=== PATIENT | male | born 1960 | race Caucasian/White ===

== ENCOUNTER 2019-11-19 23:58 | Inpatient (IN) | payer MEDICAID ==
[~2019-11-19] VITALS: Ht 182.9 cm; Wt 77.3 kg
[2019-11-20] VITALS (9 sets, daily range): BP systolic 96–134; BP diastolic 60–79
--- NOTE | 2019-11-20 00:06 | NUR ---
THIS TECH DID EKG
[2019-11-20 00:26] LABS: BASOPHILS # (AUTO) 0.01 x10^3/uL (0-0.1); BASOPHILS % (AUTO) 0 % (0-1); EOSINOPHILS # (AUTO) 0.09 x10^3/uL (0-0.4); EOSINOPHILS % (AUTO) 1 % (1-7); LYMPHOCYTES # (AUTO) 1.77 x10^3/uL (1-3.4); LYMPHOCYTES % (AUTO) 24 % (22-44); MD NO; MEAN CORPUSCULAR HEMOGLOBIN 31.4 pg (27.5-34.5); MEAN CORPUSCULAR HGB CONC 33.6 g/dL (33.2-36.2); MEAN CORPUSCULAR VOLUME 93.4 fL (81-97); MEAN PLATELET VOLUME 8.5 fL (7.4-10.4); MONOCYTES # (AUTO) 0.55 x10^3/uL (0.2-0.8); MONOCYTES % (AUTO) 8 % (2-9); NEUTROPHILS # (AUTO) 4.86 x10^3/uL (1.8-6.8); NEUTROPHILS % (AUTO) 67 % (42-75); PLATELET COUNT 159 x10^3/uL (130-400); RED BLOOD COUNT 4.39 x10^6/uL (4.38-5.82); RED CELL DISTRIBUTION WIDTH 13.5 % (9.4-14.8)
[2019-11-20 00:36] LABS: ALBUMIN 3.8 g/dL (3.4-5.0); ANION GAP 7 mmol/L (5-15); CALCIUM 8.6 mg/dL (8.5-10.1); CHLORIDE 114 mmol/L (98-107); CREATININE 1.01 mg/dL (0.7-1.3)
[2019-11-20 00:42] LABS: TROPONIN I 0.131 ng/mL (0.000-0.045)
--- NOTE | 2019-11-20 00:53 | NUR ---
SISTER ROMANA [phone]
--- NOTE | 2019-11-20 01:33 | NUR ---
[facility] for an [facility] r/o. Patient states he was breaking up a dog fight earlier when he became SOB and felt "different." After the event, he states he passed out. Per EMS, patient had abnormal EKG at the previous facility. Patient denies CP or SOB at this time. No other symptoms reported. Respirations even and unlabored.
--- NOTE | 2019-11-20 01:43 | NUR ---
Report given to MONIK Mitchell. Patient to be transferred to room 511-1.
[2019-11-20] MEDS ORDERED: morphine SULFATE 10 MG/ML, 1ML IVPush PRN (02:30)
[2019-11-20] MEDS ORDERED: ACETAMINOPHEN 325 MG TABLET PO PRN (02:30)
[2019-11-20] MEDS ORDERED: GABAPENTIN 300 MG CAPSULE PO PRN (02:30)
[2019-11-20] MEDS ORDERED: TRAZODONE 50MG TABLET PO PRN (02:30)
[2019-11-20] MEDS ORDERED: hydrALAzine 20 MG/ML, 1ML IVPush PRN (02:30)
[2019-11-20] MEDS ORDERED: ONDANSETRON 2MG/ML, 2ML IVPush PRN (02:30)
[2019-11-20] MEDS: ASPIRIN 325 MG TABLET EC PO SCH (06:00)
[2019-11-20 06:07] LABS: CHOL/HDL RATIO 4.8; CHOLESTEROL, TOTAL 163 mg/dL (140-239); HDL CHOL % 21 % (26-37); HDL CHOLESTEROL (DIRECT) 34 mg/dL (40-60); LDL CHOLESTEROL,CALCULATED 118 mg/dL (54-169); LDL/HDL RATIO 3.5 (0.5-3.0); TRIGLYCERIDES 53 mg/dL (50-200); TROPONIN I 0.095 ng/mL (0.000-0.045); VLDL CHOLESTEROL 11 mg/dL (0-25)
[2019-11-20 06:39] LABS: AMPHETAMINE SCREEN, URINE Negative (Negative); BARBITURATE SCREEN, URINE Negative (Negative); BENZODIAZEPINE SCREEN, URINE Negative (Negative); CANNABINOID SCREEN, URINE Negative (Negative); COCAINE SCREEN, URINE Negative (Negative); METHADONE SCREEN, URINE Negative (Negative); OPIATE SCREEN, URINE Negative (Negative)
[2019-11-20] MEDS ORDERED: REGADENOSON 0.4 MG/5 ML SYRINGE ONE (08:09)
[2019-11-20 12:35] LABS: TROPONIN I 0.052 ng/mL (0.000-0.045)
[2019-11-21] VITALS (7 sets, daily range): BP systolic 101–127; BP diastolic 61–79
[2019-11-21 05:38] LABS: ANION GAP 9 mmol/L (5-15); CALCIUM 8.4 mg/dL (8.5-10.1); CHLORIDE 114 mmol/L (98-107)
[2019-11-21] MEDS: ASPIRIN 325 MG TABLET EC PO SCH (06:21)
[2019-11-22 00:21] VITALS: BP 108/65
[2019-11-22] MEDS: ASPIRIN 325 MG TABLET EC PO SCH (05:30)
[2019-11-22 07:34] VITALS: BP 109/74
[2019-11-22] MEDS: SODIUM CHLORIDE 0.9% 1,000 ML IV SCH ×2 (10:06→21:00)
[2019-11-22 13:26] VITALS: BP 118/72
[2019-11-22] MEDS ORDERED: FENTANYL PF 100 MCG/2ML ONE (14:12)
[2019-11-22] MEDS ORDERED: VERAPAMIL 2.5 MG/ML, 2ML ONE (14:12)
[2019-11-22] MEDS ORDERED: LIDOCAINE-MPF 1%, 5ML ONE (14:12)
[2019-11-22] MEDS ORDERED: MIDAZOLAM 1 MG/ML, 2ML ONE (14:12)
[2019-11-22] MEDS ORDERED: HEPARIN 1,000 UNITS/ML, 10ML ONE (14:13)
[2019-11-22 20:28] VITALS: BP 105/73
[2019-11-23 01:56] VITALS: BP 103/68
[2019-11-23] MEDS: ASPIRIN 325 MG TABLET EC PO SCH (05:37)
[2019-11-23 07:32] VITALS: BP 106/64
[2019-11-23] MEDS ORDERED: MAGNESIUM HYDROXIDE 8%, 30ML UDC PO SCH (09:00)
[2019-11-23] MEDS ORDERED: OMNIPAQUE 350 MG/ML, 100ML BOTTLE ONE (10:29)
[2019-11-23 13:14] VITALS: BP 106/68
[2019-11-23] MEDS ORDERED: ACET325T26 PO (13:40)
[2019-11-23] MEDS ORDERED: ASPI-650 PO (13:40)
[2019-11-23] MEDS ORDERED: GABA300C PO (13:40)
[2019-11-23] MEDS ORDERED: MAGN400O7 PO (13:40)
== END 2019-11-23 16:40 | disposition home or self-care (01) | DRG 190 ==
LOC: ED 11-20 00:57 → EDIP 11-20 01:14 → 5SO 11-20 01:50 → DCLOUNGE 11-23 16:28
PROVIDERS: ADMIT Family Medicine; ATTEND Family Medicine
PROC: B2111ZZ Fluoroscopy of Multiple Coronary Arteries using Low Osmolar Contrast (ICD-10-PCS; principal; 2019-11-22)
PROC: B3101ZZ Fluoroscopy of Thoracic Aorta using Low Osmolar Contrast (ICD-10-PCS; 2019-11-22)
PROC: B31N1ZZ Fluoroscopy of Other Upper Arteries using Low Osmolar Contrast (ICD-10-PCS; 2019-11-22)
DX: I21.4 Non-ST elevation (NSTEMI) myocardial infarction (principal); F17.290 Nicotine dependence, other tobacco product, uncomplicated; I25.10 Atherosclerotic heart disease of native coronary artery without angina pectoris; I35.0 Nonrheumatic aortic (valve) stenosis; I49.3 Ventricular premature depolarization; M06.9 Rheumatoid arthritis, unspecified; M19.90 Unspecified osteoarthritis, unspecified site; K59.00 Constipation, unspecified; F32.9 Major depressive disorder, single episode, unspecified; R32 Unspecified urinary incontinence; Z82.49 Family history of ischemic heart disease and other diseases of the circulatory system
CPT/HCPCS: 36415; 71045; 71275; 78452; 80048; 80061; 80307; 82040; 84484; 85025; 85379; 93005; 93017; 93306; 93454; 93567; 93880; 99156; 99157; 99285; C1769; C1894; G0378; J1644; J2250; J2785; J3010; Q9967; A9502; C9898; J7030